=== PATIENT | female | born 1955 | race Hispanic/Latino ===

== ENCOUNTER 2017-12-30 05:59 | Day surgery (SDC) | payer MEDICAID ==
[~2017-12-30] VITALS: Ht 162.6 cm; Wt 86.2 kg
[2017-12-30] MEDS ORDERED: SODIUM CHLORIDE 0.9% 1000ML 1,000 ML IV ONE (06:00)
[2017-12-30 06:43] VITALS: BP 177/70
[2017-12-30] MEDS ORDERED: alendronate (07:00)
[2017-12-30] MEDS ORDERED: METO50TA18 PO (07:00)
[2017-12-30] MEDS ORDERED: bupropion (07:00)
[2017-12-30] MEDS ORDERED: PANT40TA25 PO (07:00)
[2017-12-30] MEDS ORDERED: butrans (07:00)
[2017-12-30] MEDS ORDERED: SUCCINYLCHOLINE CHLORIDE 20 MG/ML 10 ML VIAL ONE (07:34)
[2017-12-30] MEDS ORDERED: PHENYLEPHRINE HCL 10 MG/ML 1ML VIAL IV ONE (07:34)
[2017-12-30] MEDS ORDERED: GLYCOPYRROLATE 0.2 MG/ML 5 ML VIAL ONE (07:34)
[2017-12-30] MEDS ORDERED: LIDOCAINE HCL 1% 20 ML VIAL ONE (07:34)
[2017-12-30] MEDS ORDERED: PROPOFOL 10 MG/ML 20ML VIAL IV ONE (08:01)
[2017-12-30 08:05] VITALS: BP 107/50
== END 2017-12-30 08:35 | disposition home or self-care (01) ==
LOC: DAH 05:59 → ENDO 05:59
PROVIDERS: ATTEND Internal Medicine
DX: K63.5 Polyp of colon (principal); K64.8 Other hemorrhoids; K63.89 Other specified diseases of intestine; K29.50 Unspecified chronic gastritis without bleeding; K57.30 Diverticulosis of large intestine without perforation or abscess without bleeding; K31.89 Other diseases of stomach and duodenum; K22.8 Other specified diseases of esophagus; I10 Essential (primary) hypertension; F41.9 Anxiety disorder, unspecified; M81.0 Age-related osteoporosis without current pathological fracture; K21.9 Gastro-esophageal reflux disease without esophagitis; Z90.710 Acquired absence of both cervix and uterus; Z90.49 Acquired absence of other specified parts of digestive tract; Z98.890 Other specified postprocedural states; Z82.49 Family history of ischemic heart disease and other diseases of the circulatory system; Z80.8 Family history of malignant neoplasm of other organs or systems; Z86.010 Personal history of colon polyps; Z79.899 Other long term (current) drug therapy
CPT/HCPCS: 45380; 43239; A4606; J0330; J2370; J2704; J3490; J7030

== ENCOUNTER 2018-11-18 21:33 | Emergency (ER) | payer MEDICAID ==
[~2018-11-18 21:33] MED LIST: METO50TA18 PO; PANT40TA25 PO; alendronate; bupropion; butrans
[2018-11-18] MEDS ORDERED: KETOROLAC TROMETHAMINE 30MG/ML ONE (22:23)
[2018-11-18 22:43] LABS: BASOPHILS % (AUTO) 0.6 % (0.0-5.0); EOSINOPHILS % (AUTO) 1.2 % (0.0-8.0); HEMATOCRIT 38.5 % (36-48); LYMPHOCYTES % (AUTO) 43.4 % (21.0-51.0); MEAN CORPUSCULAR HEMOGLOBIN 29.8 pg (27.0-33.0); MEAN CORPUSCULAR VOLUME 87.7 fL (79-99); MONOCYTES % (AUTO) 7.9 % (3.0-13.0); NEUTROPHILS % (AUTO) 46.9 % (40.0-77.0); NUCLEATED RED BLOOD CELLS 0.1 % (0.0-0.19); PLATELET COUNT (AUTO) 260 K/uL (130-400); RED BLOOD CELL COUNT(AUTO) 4.39 MIL/uL (4.00-5.50); RED CELL DISTRIBUTION WIDTH 13.4 % (11.0-15.5); WHITE BLOOD COUNT (AUTO) 8.9 K/uL (4.8-10.8)
[2018-11-18 22:52] LABS: CREATININE 0.8 mg/dL (0.5-1.5); POTASSIUM 3.8 mmol/L (3.5-5.1)
[2018-11-18 22:56] LABS: ALBUMIN 3.6 g/dL (3.5-5.0); BILIRUBIN,TOTAL 0.2 mg/dL (0.2-1.0); CRP QUANTITATIVE 23.6 mg/L (0.00-9.0); TOTAL PROTEIN, SERUM 7.5 g/dL (6.0-8.3)
[2018-11-19] MEDS ORDERED: DEXAMETHASONE SOD PHOSPHATE 10MG/ML 1ML VIAL ONE (00:05)
== END 2018-11-19 00:53 | disposition home or self-care (01) ==
LOC: EDH 21:33
DX: M72.9 Fibroblastic disorder, unspecified (principal); I10 Essential (primary) hypertension; F32.9 Major depressive disorder, single episode, unspecified; Z90.49 Acquired absence of other specified parts of digestive tract
CPT/HCPCS: 36415; 80053; 85025; 86140; 96374; 96375; 99284; J1100; J1885

== ENCOUNTER 2018-11-29 17:30 | Emergency (ER) | payer MEDICAID ==
[2018-11-29] MEDS ORDERED: ACETAMINOPHEN EXTRA STRENGTH 500 MG TABLET ONE (18:50)
== END 2018-11-29 19:21 | disposition home or self-care (01) ==
LOC: EDH 17:30
DX: M76.9 Unspecified enthesopathy, lower limb, excluding foot (principal); M17.11 Unilateral primary osteoarthritis, right knee; F32.9 Major depressive disorder, single episode, unspecified; I10 Essential (primary) hypertension
CPT/HCPCS: 73562

== ENCOUNTER 2019-04-30 12:00 | Observation (INO) | payer MEDICAID ==
[~2019-04-30] VITALS: Ht 162.6 cm; Wt 88.9 kg
[2019-04-30 11:42] LABS: BASOPHILS % (AUTO) 0.8 % (0.0-5.0); EOSINOPHILS % (AUTO) 1.3 % (0.0-8.0); HEMATOCRIT 41.3 % (36-48); LYMPHOCYTES % (AUTO) 33.8 % (21.0-51.0); MEAN CORPUSCULAR HEMOGLOBIN 30.6 pg (27.0-33.0); MEAN CORPUSCULAR HGB CONC 34.3 g/dL (32.0-36.0); MEAN CORPUSCULAR VOLUME 89.4 fL (79-99); MONOCYTES % (AUTO) 5.5 % (3.0-13.0); NEUTROPHILS % (AUTO) 58.6 % (40.0-77.0); PLATELET COUNT (AUTO) 262 K/uL (130-400); RED BLOOD CELL COUNT(AUTO) 4.62 MIL/uL (4.00-5.50); RED CELL DISTRIBUTION WIDTH 13.4 % (11.0-15.5); WHITE BLOOD COUNT (AUTO) 8.9 K/uL (4.8-10.8)
[2019-04-30 11:43] VITALS: BP 172/73
[~2019-04-30 12:00] MED LIST changes: -PANT40TA25 PO; -alendronate; -bupropion; -butrans
[2019-04-30] MEDS ORDERED: ROPI0.257 PO (12:11)
[2019-04-30] MEDS ORDERED: OMEP40CA13 PO (12:11)
[2019-04-30] MEDS ORDERED: TRAM50TA4 PO (12:11)
[2019-04-30 14:42] LABS: CREATININE 0.8 mg/dL (0.5-1.5)
[2019-05-01] VITALS (20 sets, daily range): BP systolic 119–179; BP diastolic 52–92
[2019-05-01] MEDS: CEFAZOLIN SODIUM 1 GM VIAL IVP ONE ×2 (08:00→12:35)
[2019-05-01] MEDS ORDERED: CEFAZOLIN SODIUM 1 GM VIAL ONE (11:51)
[2019-05-01] MEDS ORDERED: LACTATED RINGERS 1000ML 1,000 ML IV ONE (11:51)
[2019-05-01] MEDS ORDERED: SCOPOLAMINE HYDROBROMIDE 1 EACH ADH..PATCH TD ONE (12:18)
[2019-05-01] MEDS ORDERED: MEPERIDINE-PF 25 MG/ML SYG ONE (14:24)
[2019-05-01] MEDS ORDERED: KETOROLAC TROMETHAMINE 30MG/ML ONE (14:24)
[2019-05-01] MEDS ORDERED: MIDAZOLAM HCL 1 MG/ML 2ML VIAL ONE (14:39)
[2019-05-01] MEDS ORDERED: MORPHINE SULFATE 4 MG/1ML SYG ONE (14:44)
[2019-05-01 14:45] LABS: HEMATOCRIT 37.9 % (36-48)
--- NOTE | 2019-05-01 15:20 | NUR ---
POST OP PT ARRIVED TO FLOOR FROM PACU, PT IS DROWSY BUT AROUSES EASILY, RIGHT KNEE LONG LEG DRESSING D/I, PEDAL PULSES PRESENT, TOES WARM TO TOUCH, UNABLE TO ASSESS CAPILLARY REFILL BECAUSE HAS NAIL LAO, ABLE TO DORSIFLEX. ORIENTED TO ROOM, CALL WOLF WITHIN REACH.
[2019-05-01] MEDS ORDERED: LACTATED RINGERS 1000ML 1,000 ML IV SCH (15:45)
[2019-05-01] MEDS ORDERED: MAGNESIUM HYDROXIDE 30 ML/UDCUP PO PRN (15:45)
[2019-05-01] MEDS ORDERED: BISACODYL 10 MG SUPP.RECT RC PRN (15:45)
[2019-05-01] MEDS ORDERED: MORPHINE SULFATE 10 MG/ML 1ML SYG IM PRN (15:45)
[2019-05-01] MEDS ORDERED: DEXTROSE 5%-LACTATED RINGERS 1,000 ML IV SCH (15:45)
[2019-05-01] MEDS ORDERED: ONDANSETRON HCL 4 MG/2 ML VIAL IVP PRN (16:15)
[2019-05-01] MEDS ORDERED: TRAMADOL HCL 50 MG TABLET PO PRN ×2 (16:15→18:00)
[2019-05-01] MEDS ORDERED: HYDRALAZINE HCL 20 MG/ML VIAL IV PRN (16:15)
[2019-05-01] MEDS ORDERED: HYDROCODONE/ACETAMINOPHEN 5/325 MG TAB PO PRN (16:15)
[2019-05-01] MEDS ORDERED: CEFAZOLIN SODIUM 1 GM VIAL IVP SCH (18:00)
[2019-05-01 18:36] LABS: HEMATOCRIT 37.1 % (36-48)
[2019-05-01] MEDS: CEFAZOLIN SODIUM 1 GM VIAL IVP SCH (18:50)
[2019-05-01] MEDS ORDERED: ACETAMINOPHEN-CODEINE 300/30MG TAB ONE (19:56)
[2019-05-01] MEDS ORDERED: MORPHINE SULFATE 10 MG/ML 1ML VIAL ONE (19:58)
[2019-05-01] MEDS ORDERED: LUBIPROSTONE 24 MCG CAP PO PRN (20:00)
[2019-05-01] MEDS: PROMETHAZINE HCL 25 MG/ML 1ML AMPULE IM PRN (20:07)
[2019-05-01] MEDS: METOPROLOL TARTRATE 50 MG TAB PO SCH (20:08)
[2019-05-01] MEDS: ROPINIROLE HCL 0.25 MG TABLET PO SCH (20:09)
[2019-05-01] MEDS ORDERED: ACETAMINOPHEN 325 MG TAB PO PRN (20:45)
[2019-05-02] MEDS ORDERED: MORPHINE SULFATE 10 MG/ML 1ML VIAL ONE (00:19)
[2019-05-02] MEDS: PROMETHAZINE HCL 25 MG/ML 1ML AMPULE IM PRN (00:23)
[2019-05-02 00:48] LABS: HEMATOCRIT 39.8 % (36-48)
[2019-05-02] MEDS: CEFAZOLIN SODIUM 1 GM VIAL IVP SCH ×2 (02:13→08:24)
[2019-05-02 03:39] VITALS: BP 138/77
[2019-05-02] MEDS: ACETAMINOPHEN-CODEINE 300/30MG TAB PO PRN ×2 (05:41→13:03)
[2019-05-02 06:14] LABS: MEAN CORPUSCULAR HEMOGLOBIN 30.8 pg (27.0-33.0); MEAN CORPUSCULAR HGB CONC 34.7 g/dL (32.0-36.0); MEAN CORPUSCULAR VOLUME 88.8 fL (79-99); NUCLEATED RED BLOOD CELLS 0.2 % (0.0-0.19); PLATELET COUNT (AUTO) 247 K/uL (130-400); RED BLOOD CELL COUNT(AUTO) 4.28 MIL/uL (4.00-5.50); RED CELL DISTRIBUTION WIDTH 13.6 % (11.0-15.5); WHITE BLOOD COUNT (AUTO) 9.9 K/uL (4.8-10.8)
[2019-05-02 06:19] LABS: CREATININE 0.7 mg/dL (0.5-1.5); POTASSIUM 4.4 mmol/L (3.5-5.1)
[2019-05-02 08:00] VITALS: BP 132/70
[2019-05-02] MEDS: METOPROLOL TARTRATE 50 MG TAB PO SCH (08:23)
[2019-05-02] MEDS: ROPINIROLE HCL 0.25 MG TABLET PO SCH (08:24)
[2019-05-02] MEDS ORDERED: PANTOPRAZOLE SODIUM 40 MG TABLET.DR PO SCH (09:00)
[2019-05-02] MEDS ORDERED: ENOXAPARIN SODIUM 30 MG/0.3 ML SQ SCH (09:00)
[2019-05-02] MEDS ORDERED: APIXABAN 2.5 MG TABLET PO SCH (09:00)
[2019-05-02] MEDS ORDERED: MORPHINE SULFATE 10 MG/ML 1ML VIAL IM PRN (09:45)
[2019-05-02 12:00] VITALS: BP 117/52
[2019-05-02] MEDS ORDERED: APIX2.5T PO (12:07)
--- NOTE | 2019-05-02 15:50 | NUR ---
DISCHARGE DISCHARGE TEACHING DONE WITH PATIENT USING TEACHBACK METHOD, VERBALIZED UNDERSTANDING. NO NOTED SOB OR DISTRESS. DRESSING TO RIGHT KNEE DONE WITH PATIENT, VERBALIZED UNDERSTANDING. NO NOTED SOB OR DISTRESS. DRESSING CHANGED TO RIGHT KNEE ORDERED BY DR. LARA, INCISION IS DRY AND INTACT. DRESSING TEACHING DONE WITH PATIENT USING TEACHBACK METHOD, VERBALIZED UNDERSTANDING. IV REMOVED, CATH TIP INTACT. PENDING TO BE TRANSFERRED OUT VIA PRIVATE VEHICLE.
--- NOTE | 2019-05-02 16:00 | NUR ---
INITIAL MET W PATIENT ALONE LIVES W SON DARRION WHO WILL PROVIDE TRANSPORT, HAS WALKER FROM LAST SURGERY, AND A SHOWER CHAIR, NEEDS BSC, (3 IN 1) ORDER FROM DISCUSSED W PT, UNDERSTANDS MIGHT TAKE A DAY OR TWO TO ARRIVE, PT IS FINE WITH THAT HOME SAFE AND ACCESSIBLE, PT UNDERSTANDS WILL BE GOING TO DR. CASIANO OFFICE FOR THERAPY Addendum: 05/03/19 at 0905 by SD MAE RN CM Amended: Links added.
== END 2019-05-02 15:50 | disposition home or self-care (01) ==
LOC: EDSTATUS 12:00 → DAHIP 05-01 10:58 → 4AH 05-01 14:31
DX: S83.241A Other tear of medial meniscus, current injury, right knee, initial encounter (principal); M79.7 Fibromyalgia; I10 Essential (primary) hypertension; K21.9 Gastro-esophageal reflux disease without esophagitis; F32.9 Major depressive disorder, single episode, unspecified; M21.169 Varus deformity, not elsewhere classified, unspecified knee; M17.11 Unilateral primary osteoarthritis, right knee; R11.2 Nausea with vomiting, unspecified; E66.9 Obesity, unspecified; G25.81 Restless legs syndrome; Z90.49 Acquired absence of other specified parts of digestive tract; Z90.710 Acquired absence of both cervix and uterus; Z79.899 Other long term (current) drug therapy; Z68.33 Body mass index [BMI] 33.0-33.9, adult; W19.XXXA Unspecified fall, initial encounter; Y92.39 Other specified sports and athletic area as the place of occurrence of the external cause; Y93.89 Activity, other specified
CPT/HCPCS: 27446; 29881; 36415 ×3; 80048; 82550; 82565; 85014 ×3; 85018 ×3; 85025; 85027; 88304; 88311; 94760; 96361 ×2; 96372 ×2; 96374; 96375; 96376; 97039 ×2; 97116 ×2; 97161; A4215; A4221; A4222; A4223; A4510; A4600; A4606; A4649 ×2; A4930; A6223; A6260; A6447; C1713; G0378 ×26; G8978; G8979; G8980; G8981; G8982; G8983; J0690 ×4; J1885; J2175; J2250; J2270 ×5; J2405; J2550 ×2; J3490; J7120 ×2

== ENCOUNTER → 2019-09-19 | Outpatient (CLI) | payer MEDICAID ==
[~2019-09-19] MED LIST changes: +APIX2.5T PO; +OMEP40CA13 PO; +ROPI0.257 PO; +TRAM50TA4 PO
== END | disposition home or self-care (01) ==
LOC: RAH 10:06
PROVIDERS: ATTEND Internal Medicine Cardiovascular Disease
DX: R60.9 Edema, unspecified (principal)
CPT/HCPCS: 93922

== ENCOUNTER → 2019-09-20 | Outpatient (CLI) | payer MEDICAID | END | disposition home or self-care (01) | LOC: RAH 12:19 | PROVIDERS: ATTEND Internal Medicine Cardiovascular Disease | DX: R60.9 Edema, unspecified (principal) | CPT/HCPCS: 93970 ==